=== PATIENT | female | born 1955 | race African-American/Black ===

== ENCOUNTER 2021-11-14 22:19 | Emergency (ER) | payer OTHER ==
[~2021-11-14] VITALS: Ht 162.6 cm; Wt 73.0 kg
[2021-11-14 22:23] VITALS: BP 157/89
[2021-11-14] MEDS ORDERED: HYDROCODONE/ACETAMINOPHEN 5/325MG TABLET PO ONE (23:30)
[2021-11-15] MEDS ORDERED: IBUP-2029 MT (01:42)
[2021-11-15] MEDS ORDERED: IBUPROFEN 600MG TABLET PO ONE (01:45)
== END 2021-11-15 01:54 | disposition home or self-care (01) ==
LOC: ER 22:19
DX: M25.551 Pain in right hip (principal); M25.531 Pain in right wrist; M25.561 Pain in right knee; W10.8XXA Fall (on) (from) other stairs and steps, initial encounter; Y93.89 Activity, other specified; Y92.39 Other specified sports and athletic area as the place of occurrence of the external cause; Y99.8 Other external cause status
CPT/HCPCS: 72170; 72192; 73110; 73562; 99284